=== PATIENT | female | born 1965 | race Caucasian/White ===

== ENCOUNTER 2018-03-21 19:48 | Emergency (ER) | payer OTHER ==
[2018-03-21 20:59] VITALS: BP 130/99
--- NOTE | 2018-03-21 21:17 | UC ---
Skin Complaint HPI - HPI Summary HPI Summary: 52 year old female presents for tick bite to left upper arm. States found tick this afternoon and removed. States unsure how long it was attached and it did appear to be slightly engorged. Denies fever, chills, rash, flu-like illness, myalgias, joint pain or swelling. - History of Current Complaint Chief Complaint: [employer]kin Time Seen by Provider: 03/21/18 21:08 Stated Complaint: TICK BITE Hx Obtained From: Patient Hx Last Menstrual Period: 5 WEEKS AGO Pain Intensity: 2 - Allergy/Home Medications Allergies/Adverse Reactions: Allergies Allergy/AdvReac Type Severity Reaction Status Date / Time shellfish derived Allergy Severe "FOOD Verified 03/21/18 20:59 POISONING REACTION" Home Medications: Home Medications Escitalopram Oxalate [Lexapro] 20 mg PO 03/21/18 [History Confirmed 03/21/18] Ibuprofen TAB* [Advil TAB*] 200 mg PO PRN 03/21/18 [History] Multivitamin [Multivitamins] 1 each PO DAILY 03/21/18 [History Confirmed ] ValACYclovir (*) [Valtrex 500 mg (*)] 500 mg PO DAILY 03/21/18 [History Confirmed 03/21/18] Review of Systems Constitutional: Negative Skin: Other - See HPI Musculoskeletal: Negative Is Patient Immunocompromised?: No All Other Systems Reviewed And Are Negative: Yes PMH/Surg Hx/FS Hx/Imm Hx Previously Healthy: Yes Psychological History: Depression - Surgical History Surgical History: Yes - Family History Family History: Noncontributory - Social History Occupation: Employed Full-time Lives: With Family Alcohol Use: Occasionally Substance Use Type: None Smoking Status (MU): Never Smoked Tobacco Physical Exam Triage Information Reviewed: Yes Appearance: Well-Appearing, No Pain Distress, Well-Nourished Vital Signs: Initial Vital Signs Temp 98 F 03/21/18 20:53 Pulse 66 03/21/18 20:53 Resp 16 03/21/18 20:53 BP 130/99 03/21/18 20:53 Pulse Ox 100 03/21/18 20:53 Vital Signs Reviewed: Yes Respiratory: Positive: Lungs clear, Normal breath sounds, No respiratory distress Cardiovascular: Positive: RRR, No Murmur Musculoskeletal Exam: Normal Neurological: Positive: Alert Skin: Positive: significant lesion(s) - Area of mild erythema approximately 1 cm diameter with central excoriation and tiny black spot that appears to be a retained mouth part to left upper arm. Course/Dx - Course Course Of Treatment: 52 year old female with tick bite to left upper arm. Unsure how long tick was attached and reports may have been engorged. Will treat with prophylactic doxycycline. Counseled on symptoms of Lyme disease that requires evaluation. Verbalizes understanding and agrees with POC. - Diagnoses Provider Diagnoses: Tick bite left upper arm Discharge - Sign-Out/Discharge Documenting (check all that apply): Patient Departure All imaging exams completed and their final reports reviewed: No Studies - Discharge Plan Condition: Stable Disposition: HOME Patient Education Materials: Tick Bite (ED) Referrals: Bulmaro Peralta MD [Primary Care Provider] - If Needed Additional Instructions: You were given a dose of antibiotic tonight in the clinic called doxycycline to help prevent Lyme disease since there is a question of how long it had been attached. This is treatment is effective but not 100%. You will need to continue to monitor yourself for symptoms of Lyme disease for the next few weeks. Seek immediate medical attention if you develop any symptoms such as bulls eye rash, flu-like symptoms, muscle aches, joint pain or swelling. - Billing Disposition and Condition Condition: STABLE Disposition: Home - Attestation Statements Provider Attestation: I was available for consult. This patient was seen by the [facility]. The patient was not presented to, seen by, or examined by me. -Elodia
[2018-03-21] MEDS ORDERED: DOXYcycline CAP(*) 100 MG PO ONE (21:25)
== END 2018-03-21 21:40 | disposition home or self-care (01) ==
LOC: UCEAST 19:48
DX: S40.862A Insect bite (nonvenomous) of left upper arm, initial encounter (principal); Z79.899 Other long term (current) drug therapy; Z91.013 Allergy to seafood; F32.9 Major depressive disorder, single episode, unspecified; W57.XXXA Bitten or stung by nonvenomous insect and other nonvenomous arthropods, initial encounter; Y92.9 Unspecified place or not applicable
CPT/HCPCS: 99212; A9270-GY; G0463